=== PATIENT | male | born 1980 | race Caucasian/White ===

== ENCOUNTER 2018-10-28 18:31 | Emergency (ER) | payer BC ==
[~2018-10-28] VITALS: Ht 182.9 cm; Wt 108.3 kg
[~2018-10-28 18:31] MED LIST: IBUP-1542 PO
[2018-10-28 19:08] VITALS: PULSE 65; RESP 18; Ht 182.9 cm; Wt 108.3 kg
[2018-10-28 21:21] VITALS: BP 131/80
== END 2018-10-28 21:23 | disposition home or self-care (01) ==
LOC: FTE 18:31
DX: M79.672 Pain in left foot (principal)
CPT/HCPCS: 73610; 73630; Z7502